=== PATIENT | female | born 1975 | race Caucasian/White ===

== ENCOUNTER 2017-07-23 13:26 | Emergency (ER) | payer BC ==
[~2017-07-23] VITALS: Ht 170.2 cm; Wt 73.5 kg
[2017-07-23 13:33] VITALS: BP 115/66; PULSE 77; RESP 18; O2SAT 99
[2017-07-23 13:49] VITALS: BP 119/66; PULSE 69; RESP 18; O2SAT 100
--- NOTE | 2017-07-23 14:07 | PD ---
HPI Chief Complaint: Chest Pain Time Seen by Provider: 13:57 Travel History International Travel<30 days: No Contact w/Intl Traveler<30days: No Traveled to known affect area: No History of Present Illness HPI This 41-year-old female had a sudden onset of chest pain about an hour ago. She says it feels like a squeezing pain. The sternal. It has been fairly persistent. She says she had similar pain about a year ago. At that time she went to [facility] and had normal evaluation. She does not smoke. She has no family history of heart disease she has no history of diabetes or hypertension. She says she was feeling well earlier today. She exercises morning without any pain. There is no radiation of the pain. It is moderate in intensity. She is not determined anything that makes it worse or better PFSH Past Medical History Blood Disorders: No Cancer: No Cardiovascular Problems: No Diminished Hearing: No Endocrine: No Genitourinary: No Immune Disorder: No Implanted Vascular Access Dvce: No Kidney Stones: Yes Musculoskeletal: No Neurologic: No Psychiatric: No Respiratory: No Immunizations Current: Yes Influenza Vaccination: No ?: Not LMP: 07/03/17 Ovarian Cysts: Yes Past Surgical History Tonsillectomy: Yes (1999) Social History Alcohol Use: No Tobacco Use: No Substance Use: No Allergies-Medications (Allergen,Severity, Reaction): Coded Allergies: No Known Allergies (Verified Adverse Reaction, Unknown, 07/23/17) Reported Meds & Prescriptions Reported Meds & Active Scripts Active No Active Prescriptions or Reported Medications Review of Systems General / Constitutional: No: Fever, Chills Eyes: No: Diploplia, Blurred Vision HENT: No: Headaches Cardiovascular: Positive: Chest Pain or Discomfort, No: Palpitations Respiratory: No: Cough, Shortness of Breath Gastrointestinal: No: Vomiting, Diarrhea Genitourinary: No: Urgency, Frequency Musculoskeletal: No: Myalgias, Arthralgias Skin: No Rash, No Itching Hematologic/Lymphatic: No: Easy Bruising Physical Exam Narrative GENERAL: Well-developed female SKIN: Focused skin assessment warm/dry. HEAD: Atraumatic. Normocephalic. EYES: Pupils equal and round. No scleral icterus. No injection or drainage. ENT: No nasal bleeding or discharge. Mucous membranes pink and moist. NECK: Trachea midline. No JVD. CARDIOVASCULAR: Regular rate and rhythm. No murmur appreciated. There is no chest wall tenderness RESPIRATORY: No accessory muscle use. Clear to auscultation. Breath sounds equal bilaterally. GASTROINTESTINAL: Abdomen soft, non-tender, nondistended. Hepatic and splenic margins not palpable. MUSCULOSKELETAL: No obvious deformities. No clubbing. No cyanosis. No edema. NEUROLOGICAL: Awake and alert. No obvious cranial nerve deficits. Motor grossly within normal limits. Normal speech. PSYCHIATRIC: Appropriate mood and affect; insight and judgment normal. Data Data Last Documented VS Vital Signs Date Time Temp Pulse Resp B/P (MAP) Pulse Ox O2 Delivery O2 Flow Rate FiO2 07/23/17 15:07 67 18 121/66 (84) 99 Room Air Orders Orders Complete Blood Count With Diff (07/23/17 14:04) Basic Metabolic Panel (Bmp) (07/23/17 14:04) Troponin I (07/23/17 14:04) Iv Access Insert/Monitor (07/23/17 14:04) Electrocardiogram (07/23/17 14:04) Ecg Monitoring (07/23/17 14:04) Oximetry (07/23/17 14:04) Oxygen Administration (07/23/17 14:04) Chest, Single Ap (07/23/17 14:04) Sodium Chloride 0.9% Flush (Ns Flush) (07/23/17 14:15) Aspirin (Aspirin) (07/23/17 14:15) Labs Laboratory Tests Test 07/23/17 14:05 White Blood Count 9.0 TH/MM3 Red Blood Count 4.21 MIL/MM3 Hemoglobin 12.8 GM/DL Hematocrit 37.6 % Mean Corpuscular Volume 89.2 FL Mean Corpuscular Hemoglobin 30.4 PG Mean Corpuscular Hemoglobin Concent 34.0 % Red Cell Distribution Width 12.8 % Platelet Count 212 TH/MM3 Mean Platelet Volume 9.4 FL Neutrophils (%) (Auto) 77.0 % Lymphocytes (%) (Auto) 16.8 % Monocytes (%) (Auto) 4.8 % Eosinophils (%) (Auto) 1.1 % Basophils (%) (Auto) 0.3 % Neutrophils # (Auto) 7.0 TH/MM3 Lymphocytes # (Auto) 1.5 TH/MM3 Monocytes # (Auto) 0.4 TH/MM3 Eosinophils # (Auto) 0.1 TH/MM3 Basophils # (Auto) 0.0 TH/MM3 CBC Comment DIFF FINAL Differential Comment Blood Urea Nitrogen 10 MG/DL Creatinine 0.76 MG/DL Random Glucose 98 MG/DL Calcium Level 8.5 MG/DL Sodium Level 139 MEQ/L Potassium Level 3.8 MEQ/L Chloride Level 105 MEQ/L Carbon Dioxide Level 27.3 MEQ/L Anion Gap 7 MEQ/L Estimat Glomerular Filtration Rate 85 ML/MIN Troponin I LESS THAN 0.02 NG/ML MDM Medical Decision Making Medical Screen Exam Complete: Yes Emergency Medical Condition: Yes Medical Record Reviewed: Yes Differential Diagnosis Differential includes coronary artery disease, atypical chest pain, GERD, reflux Narrative Course Patient had similar pain which was thought maybe due to anxiety. She does not appear anxious at all now. Her EKG shows a normal sinus rhythm. Her troponin is normal. Chest x-ray is negative. Her pain is resolved spontaneously. I recommended the patient that she go to the chest pain center for more definitive diagnosis however she prefers to follow up with her own doctor as an outpatient. She is pain-free now and I think stable for discharge. I have cautioned her that if she has recurrence of pain that she needs to be reevaluated Diagnosis Primary Impression: Chest pain Qualified Codes: R07.9 - Chest pain, unspecified Additional Instructions: Return if pain recurs, follow up with your own medical doctor Scripts No Active Prescriptions or Reported Meds Disposition: 01 DISCHARGE HOME Condition: Stable Cecil Catherine MD Jul 23, 2017 14:07
[2017-07-23] MEDS ORDERED: ASPIRIN 325 MG TAB PO ONE (14:15)
[2017-07-23] MEDS ORDERED: SODIUM CHLORIDE 0.9% FLUSH 10 ML FLUSH IVF PRN (14:15)
[2017-07-23 14:31] LABS: BASOPHIL % 0.3 % (0.0-2.0); EOSINOPHIL # 0.1 TH/MM3 (0-0.4); EOSINOPHIL % 1.1 % (0.0-4.0); HEMATOCRIT 37.6 % (35.0-46.0); HEMO FLAGS DIFF FINAL; LYMPH % 16.8 % (9.0-44.0); LYMPHOCYTE # 1.5 TH/MM3 (1.0-4.8); MEAN CELL VOLUME 89.2 FL (80.0-100.0); MEAN CORPUSCULAR HEMOGLOBIN 30.4 PG (27.0-34.0); MONO % 4.8 % (0.0-8.0); PLATELET COUNT 212 TH/MM3 (150-450); RED BLOOD COUNT 4.21 MIL/MM3 (4.00-5.30); RED CELL DISTRIBUTION WIDTH 12.8 % (11.6-17.2)
--- NOTE | 2017-07-23 14:31 | RADRPT ---
EXAM DATE/TIME: 07/23/2017 14:08 [facility] COMPARISON: CHEST PA & LAT, July 17, 2015, 21:21. INDICATIONS : Chest pain today. MEDICAL HISTORY : None. SURGICAL HISTORY : None. ENCOUNTER: Initial ACUITY: 1 day PAIN SCORE: 7/10 LOCATION: Bilateral chest FINDINGS: A single view of the chest demonstrates the lungs to be symmetrically aerated without evidence of mas s, infiltrate or effusion. The cardiomediastinal contours are unremarkable. Osseous structures are intact. CONCLUSION: No acute disease. Jacob Malone MD on July 23, 2017 at 14:22 Board Certified Radiologist. This report was verified electronically.
[2017-07-23 14:48] LABS: CHLORIDE 105 MEQ/L (98-107); POTASSIUM 3.8 MEQ/L (3.5-5.1); SODIUM (NA) 139 MEQ/L (136-145)
[2017-07-23 14:51] LABS: ANION GAP 7 MEQ/L (5-15); BICARBONATE 27.3 MEQ/L (21.0-32.0)
[2017-07-23 14:52] LABS: BLOOD UREA NITROGEN 10 MG/DL (7-18)
[2017-07-23 14:55] LABS: GLOMERULAR FILTRATION RATE 85 ML/MIN (>89)
[2017-07-23 15:06] VITALS: O2SAT 99
[2017-07-23 15:07] VITALS: BP 121/66; PULSE 67; RESP 18; O2SAT 99
--- NOTE | 2017-07-24 18:23 | EKG ---
Date Performed: 07/23/2017 Time Performed: 13:34:58 PTAGE: 41 years EKG: Sinus rhythm NORMAL ECG INTERPRETATION BASED ON A DEFAULT AGE OF 42 YEARS NO PREVIOUS TRACING DOCTOR: Bonnie Chou Interpretating Date/Time 07/24/2017 18:17:00
== END 2017-07-23 15:50 | disposition home or self-care (01) ==
LOC: PHED 13:26
DX: R07.9 Chest pain, unspecified (principal)
CPT/HCPCS: 71010; 80048; 84484; 85025; 93005; 99285